=== PATIENT | male | born 1985 | race American Indian/Alaskan Native ===

== ENCOUNTER 2019-06-07 06:43 | Emergency (ER) | payer SELFPAY ==
[2019-06-07 06:53] VITALS: BP 186/108
== END 2019-06-07 08:10 | disposition left against medical advice (07) ==
LOC: ED 06:43
DX: J11.1 Influenza due to unidentified influenza virus with other respiratory manifestations (principal); Z53.21 Procedure and treatment not carried out due to patient leaving prior to being seen by health care provider